=== PATIENT | male | born 1930 | race Caucasian/White ===

== ENCOUNTER 2017-06-26 14:43 | Emergency (ER) | payer MEDICARE, OTHER ==
[2017-06-26 16:00] LABS: BASOPHILS 0.5 % (0-2); EOSINOPHILS 1.5 % (0-7); HEMATOCRIT 46.4 % (42.0-54.0); HEMOGLOBIN 14.9 g/dL (13.5-17.5); IMMATURE GRANULOCYTES 0.3 % (0-5); LYMPHOCYTES 22.2 % (15-50); MCH 30.7 pg (26.0-34.0); MCHC 32.1 g/dL (31.0-37.0); MCV 95.5 fL (80.0-100.0); MEAN PLATELET VOLUME 11.2 fL (7.4-10.4); MONOCYTES 11.9 % (2-11); NEUTROPHILS 63.6 % (40-80); PLATELET COUNT 263 10x3/uL (130-400); RBC 4.86 10x6/uL (4.20-6.10); RDW 14.8 % (11.5-14.5); WBC 9.1 10x3/uL (4.8-10.8)
[2017-06-26 16:04] LABS: APTT 36.1 SECONDS (22.8-39.4); INR 1.16 (0.85-1.17); PROTIME 14.4 SECONDS (11.6-15.0)
[2017-06-26 16:08] LABS: ALBUMIN 3.9 g/dL (3.4-5.0); ANION GAP 13.5 mmol/L (8-16); BILIRUBIN - TOTAL 1.2 mg/dL (0.2-1.3); CALCIUM 9.7 mg/dL (8.5-10.1); CARBON DIOXIDE 28.4 mmol/L (21.0-32.0); CREATININE - SERUM 1.6 mg/dL (0.6-1.3); POTASSIUM - SERUM 4.9 mmol/L (3.5-5.1); PROTEIN - SERUM 7.3 g/dL (6.4-8.2)
[2017-07-15 10:59] VITALS: BMI 24.2
== END 2017-06-26 18:41 | disposition home or self-care (01) ==
LOC: D.ER 14:43
PROVIDERS: Emergency Medicine
DX: I48.91 Unspecified atrial fibrillation (principal); I50.9 Heart failure, unspecified; Z95.0 Presence of cardiac pacemaker; I45.2 Bifascicular block; Z86.73 Personal history of transient ischemic attack (TIA), and cerebral infarction without residual deficits

== ENCOUNTER 2017-07-15 10:21 | Outpatient (CLI) | payer MEDICARE, OTHER ==
[~2017-07-15] VITALS: Ht 167.6 cm; Wt 68.2 kg
--- NOTE | ~2017-07-15 | HEMODYNAMI ---
PATIENT:PK LOAIZA JR MEDICAL RECORD: [id number] : 32 LOCATION:[facility] ADMISSION DATE: 07/15/17 Generatedon:07/15/201713:17 Patient name: PK LOAIZA Patient #: [id number] SSN: : 1930 Date of study: 07/15/2017 Page: Of Hemodynamic Procedure Report Patient Data Patient Demographics Procedure consent was obtained First Name: PK Gender: Male Last Name: FADIA Suffix: [facility] Initial: MARY : 1930 Patient #: [id number] Age: 86 year(s) Race: Unknown Additional ID: [id number] Contact details [address] [address] [place] [address] [address] State: [place] City: [place] Zip code: [address] Admission Admission Data Admission Date: 07/15/2017 Admission Time: 10:21 Procedure Procedure Types Cath Procedure Diagnostic Procedure Cardioversion External Procedure Description Procedure Date Procedure Date: 07/15/2017 Procedure Start Time: 13:07 Procedure End Time: 13:16 Procedure Staff Name Function Nikolas Johnson MD Performing Physician John Pak RT Monitor Scott Mancilla RN Nurse Ryan Garay MD Additional personnel Codey Gonzales RN Nurse Procedure Data Cath Procedure Fluoroscopy Diagnostic fluoroscopy Total fluoroscopy Time: 0 time: 0 min min Diagnostic fluoroscopy Total fluoroscopy dose: 0 dose: 0 mGy mGy Contrast Material Contrast Material Type Amount (ml) Isovue 300 0 Estimated blood loss: 0 ml Procedure Complications No complications Procedure Medications Medication Administration Route Dosage Oxygen etCO2 Nasal cannula 6 l/min Refer to Anesthesia Notes for Sedation Medications Refer to Anesthesia Notes for Sedation Medications Hemodynamics Rest Heart Rate: 80 (bpm) Snapshots Pre Cath Intra NCS Post Cath Vital Signs Time Heart Resp SPO2 etCO2 NIBP (mmHg) Rhythm Pain Sedation Rate (ipm) (%) (mmHg) Status Level (bpm) 12:39:09 78 16 97 0 132/75(113) NSR 0 (11) 10(A) , No pain 12:43:37 76 15 91 17.2 120/76(107) NSR 0 (11) 10(A) , No pain 12:48:18 72 27 99 22.5 133/64(86) NSR 0 (11) 10(A) , No pain 12:52:18 72 27 96 23.2 125/70(101) NSR 0 (11) 10(A) , No pain 12:56:17 72 22 99 15 135/75(120) NSR 0 (11) 10(A) , No pain 13:01:16 81 11 96 9 Measuring NSR 0 (11) 10(A) , No pain 13:02:06 77 20 98 15.7 147/81(119) NSR 0 (11) 10(A) , No pain 13:06:11 83 13 98 20.9 147/82(104) NSR 0 (11) 10(A) , No pain 13:11:10 84 24 95 19.4 98/61(71) NSR 0 (11) 10(A) , No pain 13:15:08 83 28 96 21.7 118/69(91) NSR 0 (11) 10(A) , No pain Medications Time Medication Route Dose Verified Delivered Reason Notes Effective ness by by 12:41:47 Oxygen etCO2 6 Nikolas Chavez Per Nasal l/min Alex Mancilla RN physician cannula 12:41:54 Refer to Nikolas Chavez Per Anesthesia Alex Mancilla RN physician Notes for Sedation Medications 13:07:56 Refer to Nikolas Chavez for Anesthesia Alex Mancilla RN sedation Notes for Sedation Medications Procedure Log Time Note 12:20:37 John Pak RT(R) sent for patient. Start room use. 12:20:38 Time tracking: Regular hours (M-F 7:00 - 5:00) 12:20:43 Plan of Care:Hemodynamics will remain stable., Cardiac rhythm will remain stable., Comfort level will be maintained., Respiratory function will remain adequate., Patient/ family verbilizes understanding of procedure., Procedure tolerated without complication., Recovers from procedure without complications.. 12:36:21 Patient arrived from Pre/Post Procedure Room to [facility] 3. Patient remains on bed/stretcher for procedure. 12:36:23 Warm blankets applied, and sabrina hugger turned on for patient comfort. 12:36:23 Correct patient and procedure confirmed by team. 12:36:24 Signed procedure consent form obtained from patient. 12:36:25 ECG and BP/O2 sat monitors applied to patient. 12:36:26 Quick Combo opened to sterile field. 12:36:30 Quick combo pads placed on patients chest and back. 12:38:11 Vital chart was started 12:41:47 Oxygen 6 l/min etCO2 Nasal cannula was administered by Scott Mancilla RN; Per physician; 12:41:54 Refer to Anesthesia Notes for Sedation Medications was administered by Scott Mancilla RN; Per physician; 12:42:00 Baseline sample Acquired. 12:42:05 Rhythm: atrial fibrillation 12:42:05 Full Disclosure recording started 12:42:11 H&P Date Dictated: 07/14/2017 Within 30 days and on chart., H&P Addendum completed by physician on day of procedure. (MUST COMPLETE FOR ALL OUTPATIENTS). 12:42:12 Pre-procedure instructions explained to patient. 12:42:13 Pre-op teaching completed and patient verbalized understanding. 12:42:18 Family in waiting room. 12:42:20 Patient NPO since Midnight. 12:42:22 Is the patient allergic to Iodine/contrast media? No. 12:42:23 Is patient on blood thinner?Yes 12:42:28 ACC The patient was administered the following blood thiners within the last 24 hours: Xarelto 12:42:31 Patient diabetic? No. 12:42:33 Previous problem with sedation/anesthesia? No ? 12:42:34 Snore? No 12:42:35 Sleep apnea? No 12:42:36 Deviated septum? No 12:42:36 Opens mouth fully? Yes 12:42:37 Sticks out tongue? Yes 12:42:39 Airway obstruction? No ? 12:42:43 Dentures? Yes ? 12:42:48 Patient pain scale 0/10 ?. 12:43:01 IV patent on arrival in left forearm with 0.9% NaCl at O. 12:43:03 Lab results completed and on chart. 12:43:07 Alarms reviewed by R. N. 12:43:41 Pt has pacemaker. 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 12:44:10 Ryan Garay MD present and monitoring patient for TIVA. 12:53:47 Case delayed due to Physician working in 1. 13:06:39 --------ALL STOP TIME OUT------ 13:06:40 Final Timeout: patient, procedure, and site verified with staff and physician. All members of the team are in agreement. 13:06:54 Physical assessment completed. ASA score P 3 - A patient with severe systemic disease as per Nikolas Johnson MD. 13:06:58 Sedation plan: TIVA Medication:Propofol 13:07:37 Procedure started. 13:07:56 Refer to Anesthesia Notes for Sedation Medications was administered by Scott Mancilla RN; for sedation; 13:10:22 Defibrillator synced and charged to 200 Joules. 13:10:30 Shock delivered. 13:12:07 Patient cardioverted to sinus rhythm . 13:12:11 Procedure ended.(Physican Out) 13:15:21 Fluoroscopy time 00.00 minutes. 13:15:22 Fluoroscopy dose: 0 mGy 13:15:22 Flurop Dose total: 0 13:15:25 Contrast amount:Isovue 300 0ml. 13:15:28 Post Procedure Pulses reassessed and unchanged 13:15:32 Post-procedure physical assessment completed. ASA score P 3 - A patient with severe systemic disease as per Nikolas Johnson MD. 13:15:35 Post procedure rhythm: sinus rhythm 13:15:38 Estimated blood loss: 0 ml 13:15:39 Post procedure instruction explained to patient.Patient verbalizes understanding. 13:15:40 Patient needs reinforcement of post procedure teaching. 13:15:41 Procedure and supply charges have been captured, reviewed, submitted and are correct. 13:15:43 Procedure Complication : No complications 13:16:39 Vital chart was stopped 13:16:40 See physician's report for complete and final results. 13:16:42 Report given to Pre/Post Procedure Room. 13:16:44 Patient transfered to Pre/Post Procedure Room with Stretcher. 13:16:46 Procedure ended. 13:16:46 Full Disclosure recording stopped 13:16:59 End room use (Document Last) Device Usage Item Manufacture Quantity Catalog Hospital Part Current Minimal Lot# / Name Number Charge Number Stock Stock Angel ne# Code [employer] [id number] Combo Signature Audit [place] Stage Time Signature Unsigned Intra-Procedure 07/15/2017 John Pak 1:17:54 PM RT(R) Signatures Monitor : John Pak RT Signature : Date : Time : [id number] [place] [address]
[2017-07-15] MEDS ORDERED: PACERONE200 MG PO (10:35)
[2017-07-15] MEDS ORDERED: LASIX20 MG (10:36)
[2017-07-15] MEDS ORDERED: XARELTO20 MG PO (10:36)
[2017-07-15] MEDS ORDERED: GEMFIBROZIL600 MG PO (10:37)
[2017-07-15 10:55] LABS: BASOPHILS 0.4 % (0-2); EOSINOPHILS 1.2 % (0-7); HEMATOCRIT 48.6 % (42.0-54.0); HEMOGLOBIN 15.8 g/dL (13.5-17.5); IMMATURE GRANULOCYTES 0.3 % (0-5); MCH 29.9 pg (26.0-34.0); MCHC 32.5 g/dL (31.0-37.0); MEAN PLATELET VOLUME 10.9 fL (7.4-10.4); MONOCYTES 12.2 % (2-11); NEUTROPHILS 66.9 % (40-80); PLATELET COUNT 285 10x3/uL (130-400); RBC 5.28 10x6/uL (4.20-6.10); RDW 14.7 % (11.5-14.5); WBC 10.4 10x3/uL (4.8-10.8)
[2017-07-15 10:59] VITALS: BP 117/80; Ht 167.6 cm; Wt 68.2 kg
[2017-07-15 11:06] LABS: ANION GAP 16.6 mmol/L (8-16); CALCIUM 8.9 mg/dL (8.5-10.1); CARBON DIOXIDE 25.2 mmol/L (21.0-32.0); CREATININE - SERUM 1.7 mg/dL (0.6-1.3); POTASSIUM - SERUM 4.8 mmol/L (3.5-5.1)
[2017-07-15 11:08] LABS: INR 3.09 (0.85-1.17); PROTIME 31.1 SECONDS (11.6-15.0)
== END 2017-07-15 14:35 | disposition home or self-care (01) ==
LOC: D.CATH 10:21
PROVIDERS: Internal Medicine Cardiovascular Disease
DX: I48.91 Unspecified atrial fibrillation (principal); I10 Essential (primary) hypertension; Z95.0 Presence of cardiac pacemaker; Z01.812 Encounter for preprocedural laboratory examination